=== PATIENT | male | born 1965 | race Caucasian/White ===

== ENCOUNTER → 2018-01-16 08:06 | Outpatient (CLI) | payer MEDICARE, OTHER, SELFPAY ==
--- NOTE | 2018-01-16 | DI.ECHO.S_ITS ---
[place] +---------+ [facility] +---------+ : : [address] : : : : [id number] : : : : Phone: [phone]---------+ Echocardiogram Report + + :Name: ULISES CARRASQUILLO Study Date: 01/16/2018 Height: 69 in : :[facility] Weight: 200 lb : : Gender: Male BSA: 2.1 m2 : :: 1965 Age: 52 yrs BP: 138/74 mmHg: :Reason For Study: Congestive Heart Failure : :Ordering Physician: Luis Daniel : :Feliciano Lopez Performed By: Jolene Mcgarry : :Referring: Dr. Kelsea Moses : + + Interpretation Summary 1) Normal left ventricular size with borderline reduced systolic function (EF 50-55%). 2) Mildly dilated right ventricle with normal function. 3) Moderate biatrial enlargement. 4) No significant valvular abnormalities. 5) Mildly dilated aortic root (diameter 4.1cm) and mildly dilated ascending aorta (diameter 4cm). 6) Compared to the Echo done 06/27/2016, no significant change. Procedure: A two-dimensional transthoracic echocardiogram with color flow and Doppler was performed. The study quality was technically good. Comparison is made with the echocardiogram of 06-27-16. The heart rate ranged between 55- 56 bpm during the study. Left Ventricle: The left ventricle is normal in size. There is normal left ventricular wall thickness. The ejection fraction is estimated to be 50-55%. Left ventricular systolic function is borderline reduced. There are no focal wall motion abnormalities. Assessment of diastolic parameters indicates normal left ventricular diastolic function and normal filling pressures. Right Ventricle: Borderline right ventricular enlargement. Right ventricular systolic function is borderline reduced. Atria: The left atrium is moderately dilated. The right atrium is moderately dilated. The interatrial septum is intact with no evidence for an atrial septal defect. Mitral Valve: The mitral valve is normal in structure and function. There is trace mitral regurgitation. Aortic Valve: The aortic valve is trileaflet. The aortic valve opens well. There is no aortic valve stenosis. There is trace aortic regurgitation. Tricuspid Valve: The tricuspid valve is normal in structure and function. There is a trace or physiologic amount of tricuspid regurgitation. The right ventricular systolic pressure is estimated at 25 mmHg assuming a right atrial pressure of 3 mm Hg. Pulmonic Valve: The pulmonic valve is not well seen, but is grossly normal. There is mild pulmonic regurgitation. Great Vessels: The aortic root is mildly dilated. The ascending aorta is mildly enlarged. The IVC is of normal diameter and collapses greater than 50% with a sniff. This suggests a low right atrial pressure of 3 mm Hg. Pericardium/ Pleura There is no pericardial effusion. There is no pleural effusion. MMode/2D Measurements & Calculations LVIDd: 5.6 cm Ao root diam: 4.1 cm LVIDs: 4.1 cm Aortic Jxn: 3.6 cm FS: 27.4 % asc Aorta Diam: 4.0 cm EPSS: 0.71 cm Ao Arch Diam (Prox Trans): 3.5 cm IVSd: 0.90 cm LVPWd: 0.85 cm LV figueredo. diameter/BSA (cm/m^2): 2.7 LV sys. diameter/BSA (cm/m^2): 2.0 LA dimension: 3.7 cm RA long axis: 5.4 cm LA A2 area: 25.5 cm2 RA area: 22.5 cm2 LA A4 area: 24.0 cm2 RA vol: 79.0 ml LA length (vol): 6.3 cm RA : 38.2 ml/m2 LA vol: 82.3 ml IVC diam: 1.6 cm LA vol index: 39.8 ml/m2 RVD1 (basal): 4.6 cm RVD2 (mid): 3.5 cm Doppler Measurements & Calculations Ao V2 max: 139.3 cm/sec MV E max hank: 62.4 cm/sec Ao V2 mean: 94.2 cm/sec MV A max hank: 50.8 cm/sec Ao max P.8 mmHg MV E/A: 1.2 Ao mean P.1 mmHg Med Peak E' Hank: 6.7 cm/sec Ao V2 VTI: 32.4 cm E/E' med: 9.3 Lat Peak E' Hank: 10.0 cm/sec E/E' lat: 6.3 E/e' average: 7.8 MV dec time: 0.24 sec MV P1/2t: 70.2 msec TR max hank: 234.8 cm/sec MV P1/2t max hank: 62.1 cm/sec TR max P.1 mmHg MVA(P1/2t): 3.1 cm2 PA V2 max: 65.6 cm/sec PA V2 mean: 37.4 cm/sec PA mean P.70 mmHg PA Accel Time: 0.12 sec Reading Physician:06:19 PM
== END ==
PROVIDERS: Family Provider Physician Assistant Medical; PCP Physician Assistant Medical; Visit Provider Internal Medicine Cardiovascular Disease
DX: I50.9 Heart failure, unspecified (principal)
CPT/HCPCS: 93306

== ENCOUNTER → 2020-02-29 11:45 | Outpatient (CLI) | payer MEDICARE, OTHER, SELFPAY ==
[2020-02-29 13:02] LABS: Add Manual Diff / Slide Review NO; Basophils Absolute Auto 0 /uL (0-100); Basophils Percent Auto 0.3 % (0-2); Eosinophils Absolute Auto 200 /uL (0-450); Hematocrit 43.7 % (41-53); Hemoglobin 14.7 g/dL (13.5-17.5); Lymphocytes Absolute Auto 2400 /uL (1100-4500); Lymphocytes Percent Auto 27.3 % (25-40); Mean Corpuscular HGB Conc 33.6 % (30-36); Mean Corpuscular Hemoglobin 29.5 PG (26-34); Mean Corpuscular Volume 87.9 fL (80-100); Monocytes Absolute Auto 500 /uL (0-900); Monocytes Percent Auto 5.7 % (3-14); Neutrophils Absolute Auto 5600 /uL (1500-7000); Neutrophils Percent Auto 64.7 % (50-75); Platelet Count 183 X10^3/uL (150-400); Red Blood Cell Count 4.97 X10^6/uL (4.5-5.9); Red Cell Distribution Width 13.6 % (11.6-14.8); White Blood Cell Count 8.7 X10^3/uL (4.5-11.0)
[2020-02-29 13:24] LABS: BUN Creatinine Ratio 23.8 (6-22); Blood Urea Nitrogen 19 mg/dL (9-20); Calcium 9.4 mg/dL (8.4-10.2); Carbon Dioxide 24 mmol/L (22-32); Chloride 110 mmol/L (98-107); Cholesterol 110 mg/dL (140-199); Estimated Glomerular Filt Rate > 60.0 mL/min (>60); Glucose 100 mg/dL (70-100); HDL Cholesterol 38 mg/dL (40-60); HEMOLYSIS 17 (0-50); LDL Cholesterol Calculated 56 mg/dL (<100); Potassium 4.4 mmol/L (3.4-5.1); Sodium 140 mmol/L (137-145); Triglycerides 79 mg/dL (35-150)
== END ==
PROVIDERS: Family Provider Physician Assistant Medical; PCP Physician Assistant Medical; Referring Provider Internal Medicine Cardiovascular Disease; Visit Provider Internal Medicine Cardiovascular Disease
DX: I50.22 Chronic systolic (congestive) heart failure (principal); E78.5 Hyperlipidemia, unspecified
CPT/HCPCS: 36415; 80048; 80061; 85025

== ENCOUNTER → 2020-03-08 07:56 | Outpatient (CLI) | payer MEDICARE, OTHER, SELFPAY ==
--- NOTE | 2020-03-08 08:19 | DI.ECHO.S_ITS ---
Echocardiogram Report + + :Name: ULISES CARRASQUILLO Study Date: 03/08/2020 Height: 69 in : :Hospital Weight: 244 lb : : Gender: Male BSA: 2.2 m2 : :: 1965 Age: 54 yrs BP: 138/82 mmHg: :Reason For Study: DISORDERS OF THE ARTERIOLS : :Ordering Physician: ERIKA, : :AL Performed By: Heather Jeong : :Referring: AL LOPEZ : + + Interpretation Summary 1) Normal left ventricular size, thickness, and systolic function (EF 55-60%). 2) Normal right ventricle size and function. 3) No significant valvular abnormalities. 4) Borderline dilated aortic root (diameter 3.9 cm) and mildly dilated ascending aorta (diameter 3.8cm). 5) Compared to the Echo done 01/16/2018, aorta is less enlarged on this study. Procedure: A two-dimensional transthoracic echocardiogram with color flow and Doppler was performed. The study quality was technically adequate. Comparison is made with the echocardiogram of 01/16/2018. The heart rate ranged between 52-65 bpm during the study. Left Ventricle: The left ventricle is normal in size and wall thickness. Left ventricular global longitudinal strain average is -18.2%. The ejection fraction is estimated to be 55-60%. Left ventricular systolic function is normal without focal wall motion abnormalities. Diastolic parameters suggest probable normal left ventricular diastolic function and normal filling pressures. Right Ventricle: The right ventricle is normal in size and function. Atria: The left atrium is moderately dilated. Right atrial size is normal. There is no Doppler evidence for an interatrial shunt. Mitral Valve: The mitral valve is normal in structure and function. There is trace mitral regurgitation. Aortic Valve: The aortic valve opens well. The aortic valve is trileaflet. There is no aortic valve stenosis. No aortic regurgitation is present. Tricuspid Valve: The tricuspid valve is normal in structure and function. The right ventricular systolic pressure is estimated to be at least 21 mmHg based on an estimated right atrial pressure of 3 mm Hg. There is mild tricuspid regurgitation. Pulmonic Valve: The pulmonic valve is not well visualized. There is mild pulmonic regurgitation. Great Vessels: The aortic root is borderline dilated. The ascending aorta is mildly enlarged. The IVC is of normal diameter and collapses greater than 50% with a sniff. This suggests a low right atrial pressure of 3 mm Hg. Pericardium/ Pleura There is no pericardial effusion. There is no pleural effusion. MMode/2D Measurements & Calculations LVIDd: 5.3 cm LVOT diam: 2.1 cm LVIDs: 3.9 cm Ao root diam: 3.9 cm FS: 25.8 % asc Aorta Diam: 3.8 cm EPSS: 0.98 cm Ao Arch Diam (Prox Trans): 3.2 cm IVSd: 0.74 cm LVPWd: 0.86 cm LV figueredo. diameter/BSA (cm/m^2): 2.4 LV sys. diameter/BSA (cm/m^2): 1.8 LA A2 area: 27.4 cm2 RA long axis: 5.6 cm LA A4 area: 21.6 cm2 RA area: 19.6 cm2 LA length (vol): 5.9 cm RA vol: 58.6 ml LA vol: 84.6 ml RA : 26.1 ml/m2 LA vol index: 37.6 ml/m2 IVC diam: 1.6 cm RVD1 (basal): 3.7 cm TAPSE: 2.5 cm Doppler Measurements & Calculations Ao V2 max: 123.0 cm/sec LVOT Max Hank: 91.7 cm/sec Ao V2 mean: 80.1 cm/sec LV V1 max P.4 mmHg Ao max P.0 mmHg LV V1 VTI: 19.7 cm Ao mean P.0 mmHg CARMELA(I,D): 2.7 cm2 Ao V2 VTI: 25.6 cm CARMELA(V,D): 2.6 cm2 sev ratio: 0.77 CARMELA indexed to BSA (cm^2/m^2): 1.2 MV E max hank: 69.3 cm/sec TR max hank: 210.2 cm/sec MV A max hank: 61.9 cm/sec TR max P.7 mmHg MV E/A: 1.1 PA V2 max: 64.1 cm/sec Med Peak E' Ahnk: 9.0 cm/sec PA V2 mean: 43.6 cm/sec E/E' med: 7.7 PA mean P.84 mmHg Lat Peak E' Hank: 11.1 cm/sec PA pr(Accel): 25.9 mmHg E/E' lat: 6.3 E/e' average: 7.0 MV dec time: 0.16 sec SVMaciejMELISSA): 67.8 ml Reading Physician:02:05 PM
== END ==
PROVIDERS: Family Provider Physician Assistant Medical; PCP Physician Assistant Medical; Referring Provider Internal Medicine Cardiovascular Disease; Visit Provider Internal Medicine Cardiovascular Disease
DX: I07.1 Rheumatic tricuspid insufficiency (principal); I77.89 Other specified disorders of arteries and arterioles
CPT/HCPCS: 93306

== ENCOUNTER → 2021-03-01 13:49 | Outpatient (CLI) | payer MEDICARE, OTHER, SELFPAY ==
[2021-03-01 14:48] LABS: Add Manual Diff / Slide Review NO; Basophils Absolute Auto 0 /uL (0-100); Basophils Percent Auto 0.3 % (0-2); Eosinophils Absolute Auto 200 /uL (0-450); Eosinophils Percent Auto 1.8 % (2-4); Hematocrit 44.2 % (41-53); Lymphocytes Absolute Auto 2500 /uL (1100-4500); Lymphocytes Percent Auto 28.9 % (25-40); Mean Corpuscular HGB Conc 33.9 % (30-36); Mean Corpuscular Hemoglobin 29.6 PG (26-34); Mean Corpuscular Volume 87.3 fL (80-100); Monocytes Absolute Auto 400 /uL (0-900); Monocytes Percent Auto 4.7 % (3-14); Neutrophils Absolute Auto 5500 /uL (1500-7000); Neutrophils Percent Auto 64.3 % (50-75); Platelet Count 191 X10^3/uL (150-400); Red Blood Cell Count 5.06 X10^6/uL (4.5-5.9); Red Cell Distribution Width 13.9 % (11.6-14.8); White Blood Cell Count 8.5 X10^3/uL (4.5-11.0)
[2021-03-01 15:50] LABS: BUN Creatinine Ratio 15.9 (6-22); Blood Urea Nitrogen 14 mg/dL (9-20); Calcium 9.6 mg/dL (8.4-10.2); Carbon Dioxide 25 mmol/L (22-32); Chloride 110 mmol/L (98-107); Cholesterol 126 mg/dL (140-199); Estimated Glomerular Filt Rate > 60.0 mL/min (>60); Glucose 101 mg/dL (70-100); HDL Cholesterol 39 mg/dL (40-60); HEMOLYSIS < 15 (0-50); LDL Cholesterol Calculated 72 mg/dL (<100); Potassium 4.2 mmol/L (3.4-5.1); Sodium 141 mmol/L (137-145); Triglycerides 77 mg/dL (35-150)
== END ==
PROVIDERS: Family Provider Physician Assistant Medical; PCP Physician Assistant Medical; Referring Provider Internal Medicine Cardiovascular Disease; Visit Provider Internal Medicine Cardiovascular Disease
DX: I50.22 Chronic systolic (congestive) heart failure (principal); I10 Essential (primary) hypertension; E78.5 Hyperlipidemia, unspecified
CPT/HCPCS: 36415; 80048; 80061; 85025

== ENCOUNTER → 2022-03-01 08:42 | Outpatient (CLI) | payer MEDICARE, OTHER, SELFPAY ==
[2022-03-01 09:45] LABS: Add Manual Diff / Slide Review NO; Basophils Absolute Auto 0 /uL (0-100); Basophils Percent Auto 0.4 % (0-2); Eosinophils Absolute Auto 200 /uL (0-450); Eosinophils Percent Auto 3.1 % (2-4); Hemoglobin 14.3 g/dL (13.5-17.5); Lymphocytes Absolute Auto 1900 /uL (1100-4500); Lymphocytes Percent Auto 28.1 % (25-40); Mean Corpuscular Hemoglobin 29.5 PG (26-34); Mean Corpuscular Volume 86.8 fL (80-100); Monocytes Absolute Auto 400 /uL (0-900); Monocytes Percent Auto 5.8 % (3-14); Neutrophils Absolute Auto 4300 /uL (1500-7000); Neutrophils Percent Auto 62.6 % (50-75); Platelet Count 190 X10^3/uL (150-400); Red Blood Cell Count 4.84 X10^6/uL (4.5-5.9); Red Cell Distribution Width 13.3 % (11.6-14.8); White Blood Cell Count 6.9 X10^3/uL (4.5-11.0)
[2022-03-01 11:12] LABS: Blood Urea Nitrogen 17 mg/dL (9-20); Calcium 8.5 mg/dL (8.4-10.2); Carbon Dioxide 24 mmol/L (22-32); Chloride 110 mmol/L (98-107); Cholesterol 137 mg/dL (140-199); Estimated Glomerular Filt Rate > 60 mL/min (>60); Glucose 93 mg/dL (70-100); HDL Cholesterol 43 mg/dL (40-60); HEMOLYSIS < 15 (0-50); LDL Cholesterol Calculated 73 mg/dL (<100); Potassium 4.2 mmol/L (3.4-5.1); Sodium 140 mmol/L (137-145); Triglycerides 106 mg/dL (35-150)
== END ==
PROVIDERS: Family Provider Physician Assistant Medical; PCP Physician Assistant Medical; Referring Provider Internal Medicine Cardiovascular Disease; Visit Provider Internal Medicine Cardiovascular Disease
DX: E78.5 Hyperlipidemia, unspecified (principal); I50.22 Chronic systolic (congestive) heart failure
CPT/HCPCS: 36415; 80048; 80061; 85025

== ENCOUNTER → 2023-05-08 13:50 | Outpatient (CLI) | payer MEDICARE, OTHER, SELFPAY ==
--- NOTE | 2023-05-08 | DI.ECHO.S_ITS ---
[place] +---------+ [facility] +---------+ : : [address] : : : : [id number] : : : : Phone: [phone]---------+ Echocardiogram Report + + :Name: ULISES CARRASQUILLO Study Date: 05/08/2023 Height: 68 in : :[facility] ReadingLocation: Weight: 217 lb : : Gender: Male BSA: 2.1 m2 : :: 1965 Age: 57 yrs BP: 122/81 mmHg: :Reason For Study: OTHER DISORDERS OF ARTERIES AND ARTERIOLS : :Ordering Physician: ERIKA, : :AL Performed By: Heather Jeong : :Referring: AL LOPEZ : + + Interpretation Summary 1) Normal left ventricular size, thickness, wall motion, and systolic function (EF 55-60%). 2) Mildly enlarged right ventricle size with normal function. 3) No significant valvular abnormalities. 4) Borderline dilated aortic root (diameter 3.9 cm) and mildly dilated ascending aorta (diameter 3.8cm). 5) Compared to the Echo done 03/08/2020, no significant change. Procedure: A two-dimensional transthoracic echocardiogram with color flow and Doppler was performed. The study quality was technically adequate. Comparison is made with the echocardiogram of 03/08/2020. The patient was in sinus bradycardia with heart rates between 50-56 bpm during the exam. Left Ventricle: The left ventricle is normal in size and wall thickness. The ejection fraction is estimated to be 55-60%. Left ventricular systolic function appears normal without focal wall motion abnormalities. Diastolic parameters suggest a relaxation abnormality of the left ventricle, consistent with probable normal filling pressures. Right Ventricle: The right ventricle is mildly dilated. The right ventricular systolic function is normal. Atria: The left atrial size is normal. Right atrial size is normal. There is no Doppler evidence for an interatrial shunt. Mitral Valve: The mitral valve is normal in structure and function. There is trace mitral regurgitation. Aortic Valve: The aortic valve is trileaflet. The aortic valve opens well. There is no aortic valve stenosis. There is trace aortic regurgitation. Tricuspid Valve: The tricuspid valve is normal in structure and function. There is mild tricuspid regurgitation. Pulmonic Valve: The pulmonic valve leaflets are thin and pliable; valve motion is normal. There is trace pulmonic regurgitation. Great Vessels: The aortic root is borderline dilated. The ascending aorta is mildly enlarged. The IVC is of normal diameter and collapses greater than 50% with a sniff. This suggests a low right atrial pressure of 3 mm Hg. Pericardium/ Pleura There is no pericardial effusion. There is no pleural effusion. MMode/2D Measurements & Calculations LVIDd: 5.0 cm LVOT diam: 2.3 cm LVIDs: 3.6 cm Ao root diam: 3.9 cm FS: 26.7 % asc Aorta Diam: 3.9 cm EPSS: 0.78 cm Ao Arch Diam (Prox Trans): 2.6 cm IVSd: 0.82 cm LVPWd: 0.71 cm LV figueredo. diameter/BSA (cm/m^2): 2.3 LV sys. diameter/BSA (cm/m^2): 1.7 LA A2 area: 21.3 cm2 RA long axis: 5.4 cm LA A4 area: 15.9 cm2 RA area: 17.0 cm2 LA length (vol): 5.4 cm RA vol: 45.1 ml LA vol: 52.8 ml RA : 21.3 ml/m2 LA vol index: 25.0 ml/m2 IVC diam: 1.4 cm RVD1 (basal): 4.2 cm TAPSE: 2.2 cm Doppler Measurements & Calculations Ao V2 max: 119.9 cm/sec LVOT Max Hank: 92.0 cm/sec Ao V2 mean: 80.6 cm/sec LV V1 max P.4 mmHg Ao max P.7 mmHg LV V1 VTI: 21.1 cm Ao mean P.0 mmHg CARMELA(I,D): 3.2 cm2 Ao V2 VTI: 26.7 cm CARMELA(V,D): 3.1 cm2 sev ratio: 0.79 CARMELA indexed to BSA (cm^2/m^2): 1.5 MV E max hank: 60.0 cm/sec PA V2 max: 82.7 cm/sec MV A max hank: 55.7 cm/sec PA V2 mean: 58.3 cm/sec MV E/A: 1.1 PA mean P.5 mmHg Med Peak E' Hank: 8.7 cm/sec PA pr(Accel): 12.2 mmHg E/E' med: 6.9 Lat Peak E' Hank: 11.5 cm/sec E/E' lat: 5.2 E/e' average: 6.1 MV dec time: 0.26 sec SV(LVOT): 84.6 ml Reading Physician:10:53 AM
== END ==
PROVIDERS: Family Provider Physician Assistant Medical; PCP Physician Assistant Medical; Referring Provider Internal Medicine Cardiovascular Disease; Visit Provider Internal Medicine Cardiovascular Disease
DX: I07.1 Rheumatic tricuspid insufficiency (principal); I77.89 Other specified disorders of arteries and arterioles
CPT/HCPCS: 93306

== ENCOUNTER → 2025-05-12 08:05 | Outpatient (CLI) | payer MEDICARE, OTHER, SELFPAY ==
--- NOTE | 2025-05-12 08:09 | DI.ECHO.S_ITS ---
[place] +---------+ [facility] : : [address] : : [id number] : : Phone: [phone] Echocardiogram Report + + :Name: ULISES CARRASQUILLO Study Date: 05/12/2025 Height: 68 in : :[facility] ReadingLocation: Weight: 218 lb : : Gender: Male BSA: 2.1 m2 : :: 1965 Age: 60 yrs BP: 128/85 mmHg: :Reason For Study: CHRONIC HEART FAILURE : :Ordering Physician: ERIKA, : :AL Performed By: Heather Jeong : :Referring: AL LOPEZ : + + Interpretation Summary 1) Normal left ventricular size and thickness with low normal systolic function (EF 50-55%). 2) Mildly enlarged right ventricle size with normal function. 3) No significant valvular abnormalities. 4) MIldly dilated aortic root (diameter 4.1 cm) and mildly dilated ascending aorta (diameter 3.9cm). 5) Compared to the Echo done 05/08/2023, aortic root enlargement has increased from 3.9cm to 4.1cm on this study (but it was noted to 4.1cm on Echo 01/16/2018). Procedure: A two-dimensional transthoracic echocardiogram with color flow and Doppler was performed. The study quality was technically adequate. Comparison is made with the echocardiogram of 05/08/2023. The patient was in sinus bradycardia with heart rates between 54-64 bpm during the exam. Left Ventricle: The left ventricle is normal in size and wall thickness. The ejection fraction is estimated to be 50-55%. There are no focal wall motion abnormalities. Normal diastolic function. Right Ventricle: The right ventricle is mildly dilated. The right ventricular systolic function is normal. Atria: The left atrial size is normal. Right atrial size is normal. There is no Doppler evidence for an atrial septal defect. Mitral Valve: The mitral valve leaflets appear normal. There is no evidence of stenosis, fluttering, or prolapse. There is trace mitral regurgitation. Aortic Valve: The aortic valve is trileaflet. The aortic valve opens well. There is no aortic valve stenosis. There is mild aortic regurgitation. Tricuspid Valve: The tricuspid valve leaflets are thin and pliable. There is mild tricuspid regurgitation. Pulmonary artery pressures cannot be estimated because of the lack of a measurable TR jet velocity but the IVC suggests a CVP of around 3 mmHg. Pulmonic Valve: The pulmonic valve leaflets are thin and pliable; valve motion is normal. There is mild pulmonic regurgitation. Great Vessels: The aortic root is mildly dilated. The ascending aorta is mildly enlarged. The IVC is of normal diameter and collapses greater than 50% with a sniff. This suggests a low right atrial pressure of 3 mm Hg. Pericardium/ Pleura There is no pericardial effusion. There is no pleural effusion. MMode/2D Measurements & Calculations LVIDd: 5.0 cm LVOT diam: 2.2 cm LVIDs: 3.8 cm Ao root diam: 4.1 cm FS: 25.5 % asc Aorta Diam: 3.9 cm EPSS: 0.72 cm Ao Arch Diam (Prox Trans): 3.5 cm IVSd: 0.81 cm LVPWd: 0.78 cm LV figueredo. diameter/BSA (cm/m^2): 2.4 LV sys. diameter/BSA (cm/m^2): 1.8 LA A2 area: 23.3 cm2 RA long axis: 4.9 cm LA A4 area: 14.1 cm2 RA area: 14.4 cm2 LA length (vol): 5.1 cm RA vol: 36.0 ml LA vol: 54.9 ml RA : 17.0 ml/m2 LA vol index: 25.9 ml/m2 IVC diam: 1.9 cm RVD1 (basal): 4.4 cm RVD2 (mid): 4.0 cm TAPSE: 2.1 cm Doppler Measurements & Calculations Ao V2 max: 112.8 cm/sec LVOT Max Hank: 86.0 cm/sec Ao V2 mean: 74.3 cm/sec LV V1 max P.0 mmHg Ao max P.1 mmHg LV V1 VTI: 19.6 cm Ao mean P.5 mmHg CARMELA(I,D): 3.0 cm2 Ao V2 VTI: 24.4 cm CARMELA(V,D): 2.9 cm2 sev ratio: 0.80 CARMELA indexed to BSA (cm^2/m^2): 1.4 MV E max hank: 55.4 cm/sec PA V2 max: 76.4 cm/sec MV A max hank: 53.3 cm/sec PA V2 mean: 50.8 cm/sec MV E/A: 1.0 PA mean P.2 mmHg Med Peak E' Hank: 8.0 cm/sec PA pr(Accel): 29.5 mmHg E/E' med: 6.9 Lat Peak E' Hank: 10.5 cm/sec E/E' lat: 5.3 E/e' average: 6.1 MV dec time: 0.[address] [facility] 73.3 ml Reading Physician:01:12 PM
== END ==
LOC: ECHO 08:08
PROVIDERS: Family Provider Physician Assistant Medical; PCP Physician Assistant Medical; Referring Provider Internal Medicine Cardiovascular Disease; Visit Provider Internal Medicine Cardiovascular Disease
DX: I08.1 Rheumatic disorders of both mitral and tricuspid valves (principal); I77.810 Thoracic aortic ectasia; I77.89 Other specified disorders of arteries and arterioles; I50.22 Chronic systolic (congestive) heart failure
CPT/HCPCS: 93306